=== PATIENT | male | born 1985 | race Hispanic/Latino ===

== ENCOUNTER 2018-02-06 08:03 | Day surgery (SDC) | payer BC ==
[~2018-02-06 08:03] MED LIST: CEFAZOLIN/SWI 2gm 2 GM/20 ML SYR IV SCH
[2018-02-06] MEDS ORDERED: Ringers Lactate 1,000 ML IV ONE ×2 (08:12→10:09)
[2018-02-06] MEDS ORDERED: FENTANYL CITR 100 MCG/2 ML ONE ×2 (08:58→09:25)
[2018-02-06] MEDS ORDERED: PROPOFOL 200 MG/20 ML VIAL IV ONE (08:58)
[2018-02-06] MEDS ORDERED: LIDOCAINE 1% MPF 5 ML VIAL ONE (08:58)
[2018-02-06] MEDS ORDERED: ROCURONIUM 50 MG/5 ML VIAL IV ONE ×2 (08:58→09:43)
[2018-02-06] MEDS ORDERED: MIDAZOLAM HCL 2 MG/2 ML INJ ONE (08:58)
[2018-02-06] MEDS: BUPIVACA 0.25%/EPI 0.0005% MDV 50 ML VIAL ONE ×2 (09:36→10:13)
[2018-02-06] MEDS ORDERED: GLYCOPYRROLATE 0.2 MG/ML SYR ONE ×2 (09:51)
[2018-02-06] MEDS ORDERED: KETOROLAC 30 MG/ML INJ ONE (09:52)
[2018-02-06] MEDS ORDERED: NEOSTIGMINE 1 MG/ML -5 ML SYRINGE ONE (09:53)
--- NOTE | 2018-02-06 10:13 | P.OP ---
Insurance Underwriter Sales: KONG NUNN Preoperative diagnosis: Ventral Periumbilical Hernia Postoperative diagnosis: Ventral Periumbilical Hernia Primary procedure: Laparoscopic Ventral Periumbilical Hernia Repair with Mesh Anesthesia: GETA + Local Estimated blood loss: <5cc Specimen: None Findings: ~3.5 cm infraumbilical hernia Complications: None Implants: Bard Ventralite ST with echo position 11.4 cm Transferred to: Recovery Room Condition: Good
[2018-02-06] MEDS: MEPERIDINE HCL 25 MG/0.5 ML ONE ×2 (10:29→10:33)
[2018-02-06] MEDS ORDERED: ONDANSETRON HCL 40 MG/20 ML VIAL ONE (10:30)
[2018-02-06] MEDS ORDERED: SUCCINYLCHOLINE 20 MG/ML (10 ML) IV ONE (10:39)
[2018-02-06] MEDS ORDERED: HYDROMORPHONE HCL 1 MG/ML INJ ONE ×2 (10:43→11:12)
[2018-02-06] MEDS: HYDROMORPHONE HCL 1 MG/ML INJ ONE ×3 (10:54→11:20)
[2018-02-06] MEDS: MIDAZOLAM HCL 2 MG/2 ML INJ ONE ×2 (11:07→11:20)
[2018-02-06] MEDS ORDERED: HYDROCODONE/APAP 5/325 MG TAB PO ONE (12:00)
[2018-02-06] MEDS ORDERED: HYDROCODONE/APAP 5/325 MG TAB ONE (12:11)
--- NOTE | 2018-02-06 13:53 | OP ---
Date of Procedure: 02/06/2018 Surgeon: Marcel Franz MD, Preoperative Diagnosis: Ventral periumbilical hernia. Postoperative Diagnosis: Ventral periumbilical hernia. Procedure Performed: Laparoscopic ventral periumbilical hernia repair with mesh. Anesthesia: General endotracheal plus local with 0.25% Marcaine with epinephrine. Estimated Blood Loss: Less than 5 cc. Specimen: None. Findings: A 3.5 cm infraumbilical hernia. Complications: None. Implants: Bard Ventralight ST with Echo positioning System, 11.4 cm mesh, round. Disposition: Transferred to recovery room in good condition. Procedure In Detail: After informed consent was obtained, the patient was brought to the operating r oom, prepped and draped in the usual sterile fashion. After adequate anesthesia was achieved, a left lateral quadrant area of skin was anesthetized with 0.25% Marcaine with epinephrine. An incision wa s made. A 5 mm 0 degree optical trocar was introduced in the abdomen without evidence of complicatio n. Insufflation was obtained to 15 mmHg. At this time, the area was inspected. There was no injury to vital structures upon entry into the abdomen. Immediately encountered and inspected was an infra umbilical approximately 3.5 cm omentum containing ventral periumbilical hernia. Additional trocar ch osen in the right lateral quadrant. This was similarly anesthetized and sharply incised, and a 5-mm trocar was introduced in the abdomen without evidence of complication. The left lateral quadrant por t was then up-sized to a 12 mm under direct visualization without evidence of complication. The Liga Sure device was used to take the omentum out of the hernia by taking down the lateral attachments and blunt dissection was predominantly used to remove the hernia contents, which were the omental fat to the normal anatomic position. The hernia was inspected and found to be approximately 3.5 cm in diam eter. At this time, a Bard Ventralight ST 11.4 cm round mesh with Echo positioning system was then b rought into the field, rolled appropriately and passed into the abdomen, deploying it using the insuf flation system from an infraumbilical incision was performed at this time through a small stab incisi on and the Washington-Banegas was used to grasp and pull the inflation deployment system through the umb ilicus. It was then deployed at this time. The mesh was appropriately positioned centrally over thi s defect and the absorbable fixation system was used to secure the mesh to the anterior abdominal wal l at this time. The balloon deployment system was then removed in its entirety and inspected on the back field and found to be in its entirety. I then continued to place a single crown type circumfere ntial mesh fixation using the absorbable fixation system to the anterior abdominal wall, and I placed a few interrupted tacks into the central portion of the hernia as well to secure the mesh to the ant erior abdominal wall in a good fashion. It was found to be in good approximation of tissues under de sufflation and normal pressure at this time. The left lateral trocar was then removed and the Washington -Bassam suture passer was used to close the 12 mm defect with a Washington-Ney suture passer with an 0 Vicryl interrupted fashion with good approximation of the tissue. The abdomen was completely de sufflated under direct visualization without evidence of complication and removed. All skin incision s were copiously irrigated and closed with a 4-0 Monocryl in a running fashion. Dermabond placed on top. The patient tolerated the procedure well without evidence of complication and transferred to [facility] PACU in good condition. All counts were correct at the end of the case. SHEA/RHONDA Voice ID: [id number] Report ID: [id number]
== END 2018-02-06 12:50 | disposition home or self-care (01) ==
LOC: OR 08:03
PROVIDERS: ATTEND Surgery
PROC: 0WUF4JZ Supplement Abdominal Wall with Synthetic Substitute, Percutaneous Endoscopic Approach (ICD-10-PCS; principal; 2018-02-06 09:15)
DX: K43.9 Ventral hernia without obstruction or gangrene (principal); K21.9 Gastro-esophageal reflux disease without esophagitis; E66.01 Morbid (severe) obesity due to excess calories; Z68.42 Body mass index [BMI] 45.0-49.9, adult
CPT/HCPCS: C1781; J0330; J0690; J1170; J2175; J2250; J2405; J2704; J2710; J3010

== ENCOUNTER 2018-08-15 02:59 | Observation (INO) | payer BC ==
[2018-08-15 03:43] LABS: Absolute Lymphocytes (CBC) 2.4 K/uL (0.7-4.9); Absolute Monocytes 0.6 K/uL (0.1-1.3); Absolute Neutrophil 4.1 K/uL (1.8-8.0); Basophils % 0.6 % (0-1.3); Eosinophils % 2.7 % (0-4.4); Hematocrit 40.7 % (39.6-49.0); Lymphocytes % 32.5 % (15.3-44.8); MPV 8.5 fL (7.6-11.3); Monocytes % 8.4 % (3.3-12.3); RBC Red Blood Cell Count 5.06 M/uL (4.33-5.43)
[2018-08-15 03:44] LABS: Protime INR 0.96
[2018-08-15] MEDS ORDERED: ONDANSETRON 4 MG/2 ML VIAL IV PRN (03:59)
[2018-08-15] MEDS ORDERED: MORPHINE 4 MG/ML SYR IV PRN (03:59)
[2018-08-15] MEDS ORDERED: ACETAMINOPHEN 500 MG TAB PO PRN (03:59)
[2018-08-15 04:07] LABS: ALT/SGPT 31 U/L (12-78); AST/SGOT 13 U/L (15-37); Albumin 3.5 g/dL (3.4-5.0); Alkaline Phosphatase 60 U/L (45-117); BUN Blood Urea Nitrogen 21 mg/dL (7-18); Bicarbonate 26 mmol/L (21-32); Bilirubin Direct < 0.1 mg/dL (0-0.2); Bilirubin Total 0.4 mg/dL (0.2-1.0); Glucose Level 130 mg/dL (74-106); Lipase 72 U/L (73-393); Magnesium 2.1 mg/dL (1.8-2.4); NT PRO-BNP 12 pg/mL (<125); Potassium 3.7 mmol/L (3.5-5.1); Protein, Total 7.4 g/dL (6.4-8.2); Sodium Level 139 mmol/L (136-145); Troponin (Emerg Dept Use Only) < 0.02 ng/mL (0.0-0.045)
[2018-08-15] MEDS ORDERED: ASPIRIN 81 MG CHEWABLE TABLET ONE (04:14)
[2018-08-15] MEDS ORDERED: ENOXAPARIN 100 MG/ML SYR SQ ONE (04:14)
[2018-08-15] MEDS ORDERED: FAMOTIDINE 20 MG/2 ML VIAL IV ONE (04:15)
[2018-08-15] MEDS ORDERED: NA CHLORIDE 0.9% 1,000 ML ONE (04:15)
--- NOTE | 2018-08-15 04:45 | ER ---
Nurse's Notes [facility] Name: Tee Garrett Age: 32 yrs Sex: Male : 1985 Arrival Date: 08/15/2018 Time: 03:02 Bed 6 Private MD: Bola Dorado C Diagnosis: Chest pain, unspecified;Palpitations;Obesity, unspecified;Abuse of non-psychoactive substances;Adverse effect of amphetamines Presentation: 08/15 03:05 Presenting complaint: Patient states: that he has been having midsternal chest pain on fc and off since 08/08/18 when he started Lisinopril/HCTZ. When he has the pain he also has palpitations and shortness of breath. Denies any nausea or vomiting. Transition of care: patient was not received from another setting of care. Onset of symptoms was August 08, 2018. Risk Assessment: Do you want to hurt yourself or someone else? Patient reports no desire to harm self or others. Initial Sepsis Screen: Does the patient meet any 2 criteria? HR > 90 bpm. Does the patient have a suspected source of infection? No. Patient's initial sepsis screen is negative. Care prior to arrival: None. 03:05 Method Of Arrival: Ambulatory 03:05 Acuity: YVROSE 3 fc Historical: - Allergies: 03:21 No Known Allergies; fc - Home Meds: 03:21 lisinopril-hydrochlorothiazide 10-12.5 mg oral tab 1 tab once daily [Active]; methadone fc 110 mg Oral once daily [Active]; - PMHx: 03:21 Hypertension; drug abuse; fc - PSHx: 03:21 Hernia repair; fc - Immunization history:: Last tetanus immunization: unknown. - Social history:: Smoking status: Patient/guardian denies using tobacco, Patient/guardian denies using alcohol, street drugs, the patient reports quitting approximately 1 years ago. - Ebola Screening: : Patient negative for fever greater than or equal to 101.5 degrees Fahrenheit, and additional compatible Ebola Virus Disease symptoms Patient denies exposure to infectious person Patient denies travel to an Ebola-affected area in the 21 days before illness onset. - Family history:: not pertinent. Screenin:19 Abuse screen: Denies threats or abuse. Nutritional screening: No deficits noted. fc Tuberculosis screening: No symptoms or risk factors identified. Fall Risk None identified. Assessment: 03:26 General: Appears in no apparent distress. Behavior is calm, cooperative. Pain: ed1 Complains of pain in chest Pain does not radiate. Pain currently is 6 out of 10 on a pain scale. Quality of pain is described as sharp, Pain began 1 day ago. Is continuous. Neuro: Level of Consciousness is awake, alert, obeys commands, Oriented to person, place, time, situation. Cardiovascular: Reports chest pain, Heart tones S1 S2 present. Respiratory: Airway is patent Respiratory effort is even, unlabored, Respiratory pattern is regular, symmetrical, Breath sounds are clear bilaterally. GI: Abdomen is obese, Bowel sounds present X 4 quads. Abd is soft and non tender X 4 quads. Patient currently denies diarrhea, nausea, vomiting. : No signs and/or symptoms were reported regarding the genitourinary system. EENT: No signs and/or symptoms were reported regarding the EENT system. Derm: Skin is intact, is healthy with good turgor, Skin is dry, Skin is normal, Skin temperature is warm. Musculoskeletal: Circulation, motion, and sensation intact. Range of motion: intact in all extremities. 04:09 Reassessment: Patient appears in no apparent distress at this time. No changes from ed1 previously documented assessment. Patient and/or family updated on plan of care and expected duration. Pain level reassessed. Patient is alert, oriented x 3, equal unlabored respirations, skin warm/dry/pink. 05:17 Reassessment: Patient appears in no apparent distress at this time. Patient and/or ed1 family updated on plan of care and expected duration. Pain level reassessed. Patient is alert, oriented x 3, equal unlabored respirations, skin warm/dry/pink. Patient states feeling better. Patient states symptoms have improved. 06:29 Reassessment: Patient appears in no apparent distress at this time. No changes from ed1 previously documented assessment. Patient and/or family updated on plan of care and expected duration. Pain level reassessed. Patient is alert, oriented x 3, equal unlabored respirations, skin warm/dry/pink. Patient states feeling better. Patient states symptoms have improved. Vital Signs: 03:05 BP 148 / 85; Pulse 111; Resp 20; Temp 98.3; Pulse Ox 99% on R/A; Weight 149.69 kg (R); fc Height 5 ft. 8 in. (172.72 cm) (R); Pain 6/10; 04:09 BP 149 / 82; Pulse 102; Resp 17; Temp 97.5(O); Pulse Ox 100% on R/A; Pain 6/10; ed1 05:17 BP 123 / 59; Pulse 92; Resp 11; Temp 98.1; Pulse Ox 100% on R/A; Pain 4/10; ed1 06:29 BP 126 / 51; Pulse 98; Resp 16; Temp 98.2(O); Pulse Ox 100% on R/A; Pain 4/10; ed1 07:21 BP 117 / 50; Pulse 107; Resp 16; Pulse Ox 98% on R/A; la1 03:05 Body Mass Index 50.18 (149.69 kg, 172.72 cm) ED Course: 03:02 Patient arrived in ED. es 03:03 oBla Dorado MD is Private Physician. es 03:05 Arm band placed on Patient placed in an exam room, on a stretcher. fc 03:05 Patient has correct armband on for positive identification. court monitor on. Pulse fc ox on. NIBP on. 03:05 No provider procedures requiring assistance completed. fc 03:17 Dejan Orozco MD is Attending Physician. samantha 03:18 Triage completed. fc 03:26 Clarisse Curran, CEZAR is Primary Nurse. ed1 03:26 Initial lab(s) drawn, by de, sent to lab. Missed attempt(s): 20 gauge in left forearm. ed1 Bleeding controlled, band aid applied, catheter tip intact. Patient maintains SpO2 saturation greater than 95% on room air. 03:37 X-ray completed. Portable x-ray completed in exam room. Patient tolerated procedure az well. 03:42 XRAY Chest (1 view) In Process Unspecified. EDMS 03:53 Missed attempt(s): 20 gauge in right antecubital area. Bleeding controlled, band aid oe applied, catheter tip intact. 04:01 Inserted saline lock: 22 gauge in left antecubital area, using aseptic technique. fc 04:42 Bola Dorado MD is Hospitalizing Provider. samantha 06:30 Resting quietly. Awaiting bed assignment. ed1 07:00 Primary Nurse role handed off by CurranClarisse chatman RN ed1 07:20 Santana Farrell, RN is Primary Nurse. la1 Administered Medications: 04:08 Drug: NS 0.9% 1000 ml Route: IV; Rate: 125 ml/hr; Site: left antecubital; ed1 04:08 Drug: Aspirin 162 mg Route: PO; ed1 04:47 Follow up: Response: No adverse reaction ed1 04:09 Drug: Pepcid 20 mg Route: IVP; Site: left antecubital; ed1 04:47 Follow up: Response: No adverse reaction ed1 04:09 Drug: Lovenox 100 mg Route: Sub-Q; Site: left lower abdomen; ed1 04:47 Follow up: Response: No adverse reaction ed1 Outcome: 04:44 Decision to Hospitalize by Provider. [facility] 10:11 Patient left the ED. ae3 Signatures: Dispatcher [employer] Dejan Gallardo MD MD cha Salyer, Edna es Chretien, Felicia, RN RN fc Riggs, Erika, RN RN ed1 Santana Farrell RN RN la1 Darnell Salomon Araceli az Elliot, Andie ae3
--- NOTE | 2018-08-15 04:45 | EDPHYS ---
Physician Documentation [facility] Name: Tee Garrett Age: 32 yrs Sex: Male : 1985 Arrival Date: 08/15/2018 Time: 03:02 Bed 6 Private MD: Bola Dorado C ED Physician Dejan Orozco HPI: 08/15 03:53 This 32 yrs old Male presents to ER via Ambulatory with complaints of Chest samantha Pain, Dizziness, Breathing Difficulty, Palpitations. 03:53 The patient or guardian reports chest pain that is located primarily in the substernal samantha area, anterior chest wall. The pain radiates to Associated signs and symptoms: The patient has no apparent associated signs or symptoms. The chest pain is described as a heaviness, a pressure. Duration: The patient or guardian reports a single episode, that is still ongoing. Modifying factors: The symptoms are alleviated by nothing. the symptoms are aggravated by nothing. Severity of pain: At its worst the pain was moderate in the emergency department the pain is unchanged. The patient has not experienced similar symptoms in the past. Historical: - Allergies: 03:21 No Known Allergies; fc - Home Meds: 03:21 lisinopril-hydrochlorothiazide 10-12.5 mg oral tab 1 tab once daily [Active]; methadone fc 110 mg Oral once daily [Active]; - PMHx: 03:21 Hypertension; drug abuse; fc - PSHx: 03:21 Hernia repair; fc - Immunization history:: Last tetanus immunization: unknown. - Social history:: Smoking status: Patient/guardian denies using tobacco, Patient/guardian denies using alcohol, street drugs, the patient reports quitting approximately 1 years ago. - Ebola Screening: : Patient negative for fever greater than or equal to 101.5 degrees Fahrenheit, and additional compatible Ebola Virus Disease symptoms Patient denies exposure to infectious person Patient denies travel to an Ebola-affected area in the 21 days before illness onset. - Family history:: not pertinent. ROS: 03:53 Constitutional: Negative for fever, chills, and weight loss, Eyes: Negative for injury, samantha pain, redness, and discharge, ENT: Negative for injury, pain, and discharge, Neck: Negative for injury, pain, and swelling, Abdomen/GI: Negative for abdominal pain, nausea, vomiting, diarrhea, and constipation, Back: Negative for injury and pain, : Negative for injury, bleeding, discharge, and swelling, MS/Extremity: Negative for injury and deformity, Skin: Negative for injury, rash, and discoloration, Neuro: Negative for headache, weakness, numbness, tingling, and seizure, Psych: Negative for depression, anxiety, suicide ideation, homicidal ideation, and hallucinations, Allergy/Immunology: Negative for hives, rash, and allergies, Endocrine: Negative for neck swelling, polydipsia, polyuria, polyphagia, and marked weight changes, Hematologic/Lymphatic: Negative for swollen nodes, abnormal bleeding, and unusual bruising. 03:53 Cardiovascular: Positive for chest pain. 03:53 Respiratory: Positive for cough, shortness of breath, at rest. Exam: 03:53 Constitutional: This is a well developed, well nourished patient who is awake, alert, samantha and in no acute distress. Head/Face: Normocephalic, atraumatic. Eyes: Pupils equal round and reactive to light, extra-ocular motions intact. Lids and lashes normal. Conjunctiva and sclera are non-icteric and not injected. Cornea within normal limits. Periorbital areas with no swelling, redness, or edema. ENT: Nares patent. No nasal discharge, no septal abnormalities noted. Tympanic membranes are normal and external auditory canals are clear. Oropharynx with no redness, swelling, or masses, exudates, or evidence of obstruction, uvula midline. Mucous membranes moist. Neck: Trachea midline, no thyromegaly or masses palpated, and no cervical lymphadenopathy. Supple, full range of motion without nuchal rigidity, or vertebral point tenderness. No Meningismus. Chest/axilla: Normal chest wall appearance and motion. Nontender with no deformity. No lesions are appreciated. Respiratory: Lungs have equal breath sounds bilaterally, clear to auscultation and percussion. No rales, rhonchi or wheezes noted. No increased work of breathing, no retractions or nasal flaring. Abdomen/GI: Soft, non-tender, with normal bowel sounds. No distension or tympany. No guarding or rebound. No evidence of tenderness throughout. Back: No spinal tenderness. No costovertebral tenderness. Full range of motion. Male : Normal genitalia with no discharge or lesions. Skin: Warm, dry with normal turgor. Normal color with no rashes, no lesions, and no evidence of cellulitis. MS/ Extremity: Pulses equal, no cyanosis. Neurovascular intact. Full, normal range of motion. Neuro: Awake and alert, GCS 15, oriented to person, place, time, and situation. Cranial nerves II-XII grossly intact. Motor strength 5/5 in all extremities. Sensory grossly intact. Cerebellar exam normal. Normal gait. Psych: Awake, alert, with orientation to person, place and time. Behavior, mood, and affect are within normal limits. 03:53 Cardiovascular: Rate: tachycardic, Rhythm: regular, Pulses: Pulses are 4+ in bilateral radial, brachial, femoral, popliteal, posterior tibial and and dorsalis pedis arteries.. Heart sounds: normal, Edema: is not appreciated, JVD: is not appreciated. 03:56 Musculoskeletal/extremity: DVT Exam: No signs of deep vein thrombosis. no pain, no samantha tenderness, negative Homans' sign noted on exam, no appreciated bluish discoloration, no erythema, no increased warmth, swelling, that is mild, of the right leg, of the left leg. Vital Signs: 03:05 BP 148 / 85; Pulse 111; Resp 20; Temp 98.3; Pulse Ox 99% on R/A; Weight 149.69 kg (R); fc Height 5 ft. 8 in. (172.72 cm) (R); Pain 6/10; 04:09 BP 149 / 82; Pulse 102; Resp 17; Temp 97.5(O); Pulse Ox 100% on R/A; Pain 6/10; ed1 05:17 BP 123 / 59; Pulse 92; Resp 11; Temp 98.1; Pulse Ox 100% on R/A; Pain 4/10; ed1 06:29 BP 126 / 51; Pulse 98; Resp 16; Temp 98.2(O); Pulse Ox 100% on R/A; Pain 4/10; ed1 07:21 BP 117 / 50; Pulse 107; Resp 16; Pulse Ox 98% on R/A; la1 03:05 Body Mass Index 50.18 (149.69 kg, 172.72 cm) MDM: 03:17 Patient medically screened. [facility] 03:57 Data reviewed: vital signs, nurses notes, lab test result(s), EKG, radiologic studies, samantha plain films. 08/15 03:18 Order name: Basic Metabolic Panel; Complete Time: 04:41 samantha 08/15 03:18 Order name: CBC with Diff; Complete Time: 03:51 samantha 08/15 03:18 Order name: LFT's; Complete Time: 04:41 samantha 08/15 03:18 Order name: Magnesium; Complete Time: 04:41 samantha 08/15 03:18 Order name: NT PRO-BNP; Complete Time: 04:41 samantha 08/15 03:18 Order name: PT-INR; Complete Time: 04:41 samantha 08/15 03:18 Order name: Troponin (emerg Dept Use Only); Complete Time: 04:41 samantha 08/15 03:18 Order name: Lipase; Complete Time: 04:41 samantha 08/15 03:18 Order name: UDS; Complete Time: 06:[address] [facility] 08/15 03:19 Order name: TSH; Complete Time: 04:[address] [facility] 08/15 04:04 Order name: Basic Metabolic Panel EDMO 08/15 04:04 Order name: Basic Metabolic Panel EDMO 08/15 04:04 Order name: CBC with Automated Diff EDMS 08/15 03:18 Order name: XRAY Chest (1 view) [facility] 08/15 03:18 Order name: EKG; Complete Time: 03:[address] [facility] 08/15 04:04 Order name: CONS Physician Consult EDMS 08/15 04:04 Order name: Echo with Doppler EDMS 08/15 04:04 Order name: CBC with Automated Diff EDMS 08/15 04:04 Order name: Troponin I EDMS 08/15 04:04 Order name: Troponin I EDMS 08/15 04:04 Order name: Troponin I EDMS 08/15 04:05 Order name: Chest Single View EDMS 08/15 04:05 Order name: Chest Single View EDMS 08/15 04:05 Order name: D-Dimer; Complete Time: 04:41 EDMO 08/15 05:53 Order name: Urine Dipstick--Ancillary (enter results) ag4 08/15 03:18 Order name: Cardiac monitoring; Complete Time: 03:28 samantha 08/15 03:18 Order name: EKG - Nurse/Tech; Complete Time: 03:[address] [facility] 08/15 03:18 Order name: IV Saline Lock; Complete Time: 05:52 samantha 08/15 03:18 Order name: Labs collected and sent; Complete Time: 03:[address] [facility] 08/15 03:18 Order name: O2 Per Protocol; Complete Time: 03:[address] [facility] 08/15 03:18 Order name: O2 Sat Monitoring; Complete Time: 03:[address] [facility] 08/15 03:18 Order name: Urine Dipstick-Ancillary (obtain specimen); Complete Time: 05:[address] [facility] 08/15 04:04 Order name: Regular EDMS 08/15 04:04 Order name: EKG Electrocardiogram EDMS 08/15 04:04 Order name: EKG Electrocardiogram EDMS 08/15 04:04 Order name: EKG Electrocardiogram EDMS 08/15 04:04 Order name: EKG Electrocardiogram EDMS Administered Medications: 04:08 Drug: NS 0.9% 1000 ml Route: IV; Rate: 125 ml/hr; Site: left antecubital; ed1 04:08 Drug: Aspirin 162 mg Route: PO; ed1 04:47 Follow up: Response: No adverse reaction ed1 04:09 Drug: Pepcid 20 mg Route: IVP; Site: left antecubital; ed1 04:47 Follow up: Response: No adverse reaction ed1 04:09 Drug: Lovenox 100 mg Route: Sub-Q; Site: left lower abdomen; ed1 04:47 Follow up: Response: No adverse reaction ed1 Disposition: 08/15/18 04:44 Hospitalization ordered by Bola Dorado for Observation. Preliminary diagnosis are Chest pain, unspecified, Palpitations, Obesity, unspecified, Abuse of non-psychoactive substances, Adverse effect of amphetamines. - Bed requested for Telemetry/MedSurg (observation). - Status is Observation. ae3 - Condition is Fair. - Problem is new. - Symptoms have improved. UTI on Admission? No Signatures: Dispatcher [employer] EDMS Dejan Orozco MD MD cha Chretien, Felicia, RN Nola Goodwin ms, Erika, RN RN ed1 Jessi Gasca ae3 Corrections: (The following items were deleted from the chart) 04:04 03:57 D-DIMER+COAG.LAB.BRZ ordered. EDMO EDMS 06:21 04:44 Hospitalization Ordered by Bola Dorado MD for Observation. Preliminary diagnosis is [facility] Chest pain, unspecified; Palpitations; Obesity, unspecified. Bed requested for Telemetry/MedSurg (observation). Status is Observation. Condition is Fair. Problem is new. Symptoms have improved. UTI on Admission? No. samantha 08:48 06:21 08/15/2018 04:44 [address] Ordered by A [address] QUINTEROS for Observation. ms Preliminary diagnosis is Chest pain, unspecified; Palpitations; Obesity, unspecified; Abuse of non-psychoactive substances; Adverse effect of amphetamines. Bed requested for Telemetry/MedSurg (observation). Status is Observation. Condition is Fair. Problem is new. Symptoms have improved. UTI on Admission? No. [facility] 10:11 08:48 08/15/2018 04:44 Hospitalization Ordered by A [address] QUINTEROS for Observation. ae3 Preliminary diagnosis is Chest pain, unspecified; Palpitations; Obesity, unspecified; Abuse of non-psychoactive substances; Adverse effect of amphetamines. Bed requested for Telemetry/MedSurg (observation). Status is Observation. Condition is Fair. Problem is new. Symptoms have improved. UTI on Admission? No. ms
[2018-08-15] MEDS ORDERED: METOPROLOL TAR 25 MG TAB PO SCH (06:00)
[2018-08-15 06:08] LABS: Barbiturates NEGATIVE (NEGATIVE); Benzodiazepines NEGATIVE (NEGATIVE); Cocaine NEGATIVE (NEGATIVE); METHAMPHETAM NEGATIVE (NEGATIVE); Methadone POSITIVE (NEGATIVE); Opiates NEGATIVE (NEGATIVE); Phencyclidine NEGATIVE (NEGATIVE); THC Cannibis NEGATIVE (NEGATIVE)
--- NOTE | 2018-08-15 06:46 | EKG ---
Test Date: 2018-08-15 Test Time: 03:16:35 [employer]: ADRIANA MEASUREMENT RESULTS: Intervals: Rate: 106 CA: 148 QRSD: 120 QT: 366 QTc: 486 [place]: P: 55 CA: 148 QRS: 10 T: -9 INTERPRETIVE STATEMENTS: Sinus tachycardia with occasional premature ventricular complexes Left ventricular hypertrophy with QRS widening Nonspecific ST abnormality Abnormal ECG No previous ECG available for comparison Electronically Signed On 08-15-18 06:45:56 CDT by Saurabh Matta
[2018-08-15 07:17] LABS: Urine Blood NEGATIVE (NEG); Urine Glucose NEGATIVE (NEG); Urine Protein TRACE (NEG); Urine Specific Gravity 1.025 (1.005-1.030)
[2018-08-15] MEDS ORDERED: LISINOPRIL 10 MG TAB PO SCH (09:00)
[2018-08-15] MEDS ORDERED: ASPIRIN EC 81 MG TAB PO SCH (09:00)
[2018-08-15] MEDS ORDERED: FAMOTIDINE 20 MG/2 ML VIAL IV SCH (09:00)
[2018-08-15] MEDS ORDERED: ENOXAPARIN 100 MG/ML SYR SQ SCH ×2 (09:00→17:00)
--- NOTE | 2018-08-15 10:09 | RAD REPORT ---
EXAM DESCRIPTION: Desmond Single View08/15/2018 3:42 am CLINICAL HISTORY: Chest pain COMPARISON: none FINDINGS: The left base is hazy. The remainder of the lungs appear clear. Heart is probably normal size. IMPRESSION: Left base is hazy most likely secondary to overlying soft tissue. If patient has clinic al symptoms to suggest an infiltrate PA and lateral chest series recommended
--- NOTE | 2018-08-15 10:55 | RAD REPORT ---
EXAM DESCRIPTION: Desmond Lao (2 Views)08/15/2018 10:48 am CLINICAL HISTORY: Chest pain COMPARISON: August 15, 2018 FINDINGS: The left lung base is clear. The lungs appear clear of acute infiltrate. The heart is nor mal size IMPRESSION: No acute abnormalities displayed
--- NOTE | 2018-08-15 14:20 | CON ---
Chief Complaint: Chest pain. History Of Present Illness: Mr. Garrett was started on lisinopril with hydrochlorothiazide for hyperten kathleen about 5 days ago. He says every day he takes it 2 hours later he gets the pain. It was making him cough, making him feel like he was choking, and giving him an uncomfortable feeling in the upper part of his chest. His last dose of it was yesterday and now he feels back to normal. Since he has been here in the hospital, his EKG does not show infarction, injury, or ischemia. There were a few P VCs. Now his telemetry shows sinus rhythm. Blood pressure 123/70. All of his troponins are normal. TSH is normal. Blood sugar is slightly elevated 130. BUN, creatinine, electrolytes normal, and a complete blood count normal. The patient has no prior history of myocardial infarction or stroke or vascular disease. 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 He is on a methadone maintenance program. He has never had an y surgical interventions. He uses tobacco and alcohol in moderation. Physical Examination: General: He appears to be his stated age, very obese. Alert, oriented, pleasant, not in distress. Neck: Carotids no bruit. Lungs: Clear. Cardiac: Normal. Abdomen: Soft. Extremities: Normal. No cyanosis, clubbing, or edema. Impression: The patient seems to be allergic to one of the 2 components in the pill he was started o n. It is most likely the lisinopril. The safest thing is to consider him intolerant to both and not try to rechallenge him with it. Right now his blood pressure is good. I do not think he needs any direct intervention. This is definitely not an acute coronary syndrome. I think if we observe him long enough that were comfortably stable, we could have him do an outpatient stress test. SUNNY Voice ID: [id number] Report ID: [id number]
[2018-08-15] MEDS: METOPROLOL TAR 25 MG TAB PO SCH (17:13)
--- NOTE | 2018-08-15 18:48 | SS ---
Chief Complaint: Chest pain, palpitation, shortness of breath. History Of Present Illness: This is a 32-year-old pleasant male patient who saw me 1 week ago for in [facility] patient office appointment. He is morbidly obese. His blood pressure was elevated. He wa s started on lisinopril/HCTZ. The patient along with elevated blood pressure also had leg edema. Th e patient says that since he started taking this medication, he has been having chest pain in the molly ter of upper part of his chest, which is in the upper sternal area, and the pain is intermittent off and on throughout the day. The patient says that when he gets up and walks around, his pain gets bet ter and goes away with activity. Yesterday, he had 2 episodes of palpitation and shortness of breath lasting maybe for about a minute or so. So after the second episode, he decided to come to the [facility] room. After he was evaluated in the ER, he was admitted to the hospital. When I saw him this morning, he was still in the emergency room and denies any fever, chills, nausea, vomiting. Allergies: NO KNOWN ALLERGIES. Medications: Lisinopril/HCTZ 10/12.5 one tab p.o. daily, and methadone 110 mg p.o. daily, and he is on this particular methadone dose for last 10 years. Review of Systems: Cardiovascular: As mentioned above. All other systems reviewed and negative. Past Medical History: Significant for hypertension, impaired fasting glucose, snoring, leg edema. Past Surgical History: Tonsillectomy and hernia surgery. Family History: Significant for hypertension, diabetes, osteoarthritis, cirrhosis of liver. Social History: Positive for smoking. Negative for alcohol use. Prior history of drug use, which w as over 10 years ago. He is on methadone program for last 10 years and has not used any drugs since he is on methadone program. Physical Examination: Vital Signs: When he first came into emergency room, vital signs included blood pressure 148/85, pul se 111, respiratory rate 20, temperature 98.3, oxygen saturation 99%. Weight 149.69 kg, height 5 fee t 8 inches. General: Awake, alert, oriented, not in distress. HEENT: Head atraumatic, normocephalic. Conjunctivae nonerythematous. Sclerae white. Mouth, no thr ush or edema noted. Ears/Nose, no mass, lesion, discharge noted. Neck: Supple. No JVD, lymph nodes, bruit, thyromegaly noted. Lungs: Bilateral good equal air entry. Clear to auscultation. No rhonchi. No rales. Heart: Normal heart sounds, no murmur or gallop. Abdomen: Soft, bowel sounds normal. No guarding, rigidity, tenderness, mass, hepatosplenomegaly, dis tention, or bruit noted. Extremities: Trace leg edema, which is overall better than compared to a week ago when he was at the office. Skin: No rash, ulcer, cellulitis. Lymphatics: No lymph node enlargement in neck, supraclavicular, infraclavicular region. Neuro: No focal neurological deficit. Chest: Unremarkable. External Genitalia: Deferred. Rectal: Deferred. Laboratory Data: White count 7.4, hemoglobin 14.2 platelets 271. Sodium 139, potassium 3.7, chlorid e 105, bicarb 26, BUN 21, creatinine 0.99, glucose 130. Liver function tests unremarkable. Troponin less than 0.02 x2. TSH 3.23. Urinalysis; trace protein, otherwise negative. Urine drug screen pos itive for methadone. EKG; sinus tachycardia with occasional premature ventricular complex, left vent ricular hypertrophy with QRS widening, nonspecific ST abnormality. Chest x-ray, no acute cardiopulmo nary changes. There was some haziness in the left lower lung field, which could be very well soft ti ssue shadow from his chest wall soft tissue, and chest x-ray, PA and lateral, will be done for furthe r evaluation today. Impression: 1.Chest pain. 2.Palpitation. 3.Dyspnea. 4.Hypertension. 5.Impaired fasting glucose. 6.Leg edema. Plan: We will go ahead and admit the patient to hospital for further evaluation and management of th is problem. Cardiology consultation will be requested. The patient's 2 sets of cardiac enzymes are negative. His chest pain is atypical in nature. When I saw him in emergency room, his heart rate wa s anywhere from 110-124 range, sinus tachycardia, and he will go ahead and stop using lisinopril/HCTZ , considering he is having these new symptoms, which are something new that he describes, started aft er he started taking lisinopril. We will go ahead and start him on low-dose metoprolol. Cardiology consultation is requested. Possible discharge to go home later on today if passenger interline clerk approves it, and the patient will continue to follow up on outpatient basis, and upon discharge we will still sen d him home with low-dose metoprolol instead of lisinopril. I did talk to patient that he should go a head and work with his Methadone Clinic to try to wean off over period of time considering he is on t he same dose for last 10 years or so as he describes, and his goal should be to ultimately completely stop using methadone and not to use any drugs in the future. Final Diagnoses: 1.Chest pain. 2.Palpitation. 3.Shortness of breath. 4.Hypertension. 5.Leg edema. 6.Sinus tachycardia. 7.Impaired fasting glucose. QUIQUE/MODL Voice ID: [id number] Report ID: [id number]
[2018-08-16] MEDS: METOPROLOL TAR 25 MG TAB PO SCH (06:09)
--- NOTE | 2018-08-17 01:56 | DS ---
Date of Discharge: 08/16/2018 The patient was sitting in chair, denied any complaints. Has not had any recurrence of chest pain, s hortness of breath, or palpitations since his admission to the hospital. On financial services counselor, he stover s not had any cardiac arrhythmia. During this hospital stay, has remained in sinus rhythm. Physical Examination: Vital Signs: This morning, pulse 76, blood pressure 132/75, temperature 97.7. HEENT: Unremarkable. Lungs: Clear to auscultation. Heart: Sounds normal. Abdomen: Soft, bowel sounds normal. No guarding, rigidity, tenderness, distention. Extremities: No leg edema. Blood Work: White count 7.4, hemoglobin 14.2 platelets 275. Sodium 139, potassium 3.7, chloride 105 , bicarb 26, BUN 21, creatinine 0.99, glucose 130. Liver function tests unremarkable. Troponin less than 0.02. TSH 3.23, magnesium 2.1. Chest x-ray: No acute cardiopulmonary changes. Discharge Medications And Instructions: 1.Continue your methadone as you were taking before and ask Meth[facility]one Clinic to help you wean off me thadone over period of time if possible. 2.Stop lisinopril/HCTZ and start metoprolol succinate 25 mg 1 tablet by mouth daily in morning. 3.Follow up at my office per scheduled appointment. 4.Follow up with supervisor mill, Dr. Matta, to get stress test at his office. Hospital Course: A 32-year-old very pleasant male patient who came into emergency room with intermit tent history of 1 week duration of chest pain. This chest pain problem he describes started after he started taking lisinopril which was prescribed a week ago. He also started to have palpitation and shortness of breath, so he came into ER. Please see dictated H and P for more information. After bereket lopez was evaluated in the emergency room, he was admitted to the hospital. AR was ruled out by gett ing serial cardiac enzymes and Cardiology consultation was requested from Dr. Matta who evaluated elroy rooney. Both Dr. Matta and myself, we agreed to discontinue lisinopril/HCTZ as we believed that the ashok ent's symptoms were due to side effect from this medication and patient was made aware of that. Meto prolol 12.5 mg twice a day was started yesterday, which he has tolerated very well, and upon discharg e, will continue metoprolol at 25 mg once a day dose. The patient will follow up at my office per hi s appointment. He was monitored on telemetry overnight. No cardiac arrhythmia noted and he is asymp tomatic, medically stable for discharge. Final Diagnoses: 1.Chest pain. 2.Palpitation. 3.Dyspnea. 4.Hypertension. 5.Impaired fasting glucose. QUIQUE/MODL Voice ID: [id number] Report ID: [id number]
== END 2018-08-16 13:10 | disposition home or self-care (01) ==
LOC: ER 02:59 → ERHOLD 07:51 → 2ND 09:46
PROVIDERS: ADMIT Internal Medicine; ATTEND Internal Medicine
DX: R07.9 Chest pain, unspecified (principal); R00.2 Palpitations; R06.00 Dyspnea, unspecified; I10 Essential (primary) hypertension; R73.01 Impaired fasting glucose
CPT/HCPCS: 36415; 71045; 71046; 80048; 80076; 80307; 81003; 83690; 83735; 83880; 84443; 84484; 85025; 85379; 85610; 93005; 96372; 96374; 99285; G0378; J1650; J7030

== ENCOUNTER 2023-11-30 01:19 | Emergency (ER) | payer BC ==
[2023-11-30 02:33] LABS: Absolute Eosinophils 0.2 K/uL (0-0.5); Absolute Lymphocytes (CBC) 1.5 K/uL (0.7-4.9); Absolute Monocytes 0.6 K/uL (0.1-1.3); Absolute Neutrophil 4.6 K/uL (1.8-8.0); Basophils % 0.6 % (0-1.3); Eosinophils % 3.4 % (0-4.4); Hematocrit 35.2 % (39.6-49.0); Hemoglobin 11.5 g/dL (13.6-17.9); Lymphocytes % 21.9 % (15.3-44.8); MCH 27.1 pg (27.0-35.0); MCHC 32.8 g/dL (32.0-36.0); MCV 82.7 fL (80-100); MPV 7.1 fL (7.6-11.3); Monocytes % 8.5 % (3.3-12.3); Neutrophils % 65.6 % (41.7-73.7); Platelets 289 thou/uL (152-406); RBC Red Blood Cell Count 4.26 M/uL (4.33-5.43); Red Cell Distribution Width 14.4 % (12.1-15.2)
[2023-11-30 02:51] LABS: Anion Gap 9.6 mEq/L (5.0-15.0); Potassium 3.6 mEq/L (3.5-5.1); Troponin High Sensitivity 5.1 pg/mL (<58.9)
[2023-11-30] MEDS ORDERED: KETOROLAC 30 MG/ML INJ ONE (02:56)
--- NOTE | 2023-11-30 03:01 | EDPHYS ---
Physician Documentation [facility] Name: Tee Ochoa Age: 38 yrs Sex: Male : 1985 Arrival Date: 11/30/2023 Time: 01:19 Bed 18 Private MD: ED Physician Gabriel Wong HPI: 11/29 01:53 This 38 yrs old Male presents to ER via Ambulatory with complaints of Chest ec2 Pain, Headache. 01:53 Patient with history of anxiety arrives today for chest pain, headache. Patient reports ec2 he took some Atarax and minimal alleviation in symptoms. Patient states that he otherwise has a history of high blood pressure as well. Denies any exertional component.. Historical: - Allergies: 01:30 No Known Allergies; vc1 - Home Meds: 01:30 losartan 25 mg oral tablet once [Active]; metoprolol tartrate 50 mg Oral tablet daily vc1 [Active]; hydroxyzine HCl 25 mg Oral tablet [Active]; methadone 110 mg Oral once daily [Active]; - PMHx: 01:30 Hypertension; drug abuse; Anxiety; vc1 - PSHx: 01:30 None; vc1 - Immunization history:: Client reports receiving the 2nd dose of the Covid vaccine. - Infectious Disease History:: Denies. - Social history:: Smoking status: Patient reports the use of cigarette tobacco products, denies chronic smoking, but will smoke occasionally. ROS: 01:53 Constitutional: as per hpi ec2 Exam: 01:53 Constitutional: GEN: NAD Head: atraumatic Eyes: EOMI Ears: External ears are ec2 normal. CV: regular rate LUNGS: no respiratory distress ABD: non-distended SKIN: no evidence of rashes MSK: no evidence of trauma Vital Signs: 01:28 Weight 163.29 kg; Height 5 ft. 8 in. ; Pain 5/10; vc1 01:42 BP 135 / 64; Pulse 100; Resp 15; Temp 98.6; Pulse Ox 98% ; vc1 03:00 BP 118 / 50; Pulse 86; Pulse Ox 98% on R/A; Pain 3/10; tm6 03:15 Pain 0/10; tm6 03:17 BP 112 / 50; Pulse 96; Resp 18; Temp 98.7; Pulse Ox 95% on R/A; Pain 0/10; tm6 01:28 Body Mass Index 54.74 (163.29 kg, 172.72 cm) vc1 01:28 Pain Scale: Adult vc1 03:00 Pain Scale: Adult tm6 03:15 Pain Scale: Adult tm6 03:17 Pain Scale: Adult tm6 MDM: 01:25 Patient medically screened. ec2 01:41 ED course: EKG independently reviewed and interpreted by me, shows normal sinus rhythm, ec2 rate 99, no acute ST segment elevations, intervals are nonconcerning.. 01:53 Data reviewed: vital signs. ED course: Patient arrives today for evaluation of chest ec2 pain and headache. Examination remarkable for well-appearing nontoxic and appears otherwise in no acute distress with a reassuring examination. Will obtain lab work, EKG, chest x-ray. Differential includes ACS, costochondritis, anxiety . 03:00 ED course: Metabolic profile reassuring, CBC with slight anemia noted, troponin within ec2 normal ranges. Ultimately suspect migrainous symptoms versus anxiety causing patient's presentation today. Doubt ACS. Will discharge home. Return precautions given. 11/29 01:53 Order name: Basic Metabolic Panel; Complete Time: 03:00 ec2 11/29 01:53 Order name: CBC with Diff; Complete Time: 03:00 ec2 11/29 01:53 Order name: Troponin HS; Complete Time: 03:00 ec2 11/29 01:53 Order name: XRAY Chest (1 view) ec2 11/29 01:53 Order name: EKG; Complete Time: 01:53 ec2 11/29 01:53 Order name: Cardiac monitoring; Complete Time: 02:36 ec2 11/29 01:53 Order name: EKG - Nurse/Tech; Complete Time: 01:53 ec2 11/29 01:53 Order name: IV Saline Lock; Complete Time: 02:36 ec2 11/29 01:53 Order name: Labs collected and sent; Complete Time: 02:36 ec2 11/29 01:53 Order name: O2 Per Protocol; Complete Time: 01:53 ec2 11/29 01:53 Order name: O2 Sat Monitoring; Complete Time: 01:53 ec2 Administered Medications: 03:00 Drug: Ketorolac IVP 15 mg IVP once Route: IVP; Site: left forearm; tm6 03:15 Follow up: Pain 0/10 Adult; Response: No adverse reaction; Marked relief of symptoms; tm6 Pain is decreased Disposition Summary: 11/30/23 03:01 Discharge Ordered Notes: Location: Home ec2 Condition: Stable ec2 Diagnosis - Headache ec2 - Generalized anxiety disorder ec2 Followup: ec2 - With: Private Physician - When: - Reason: Re-evaluation by your physician Discharge Instructions: - Discharge Summary Sheet ec2 - General Headache Without Cause ec2 - Panic Attack, [id number] ec2 Forms: - Medication Reconciliation Form ec2 - Antibiotic Education ec2 - Prescription Opioid Use ec2 - Patient Portal Instructions ec2 - Leadership Thank You Letter ec2 Signatures: Dispatcher [employer] Rosario Jaime RN RN vc1 Gabriel Wong MD MD ec2 Marc Iglesias RN RN tm6
--- NOTE | 2023-11-30 03:01 | ER ---
Nurse's Notes [facility] Name: Tee Ochoa Age: 38 yrs Sex: Male : 1985 Arrival Date: 11/30/2023 Time: : Bed 18 Private MD: Diagnosis: Headache;Generalized anxiety disorder Presentation: 11/29 01:28 Chief complaint: Patient states: Have chest pains and then started having panic attacks vc1 I have started taking Hydroxyzine but the last couple of days it feels like my chest is compressing then the back of my neck started hurting. I took the medicine today and I still feel the pain and my blood pressure and heart rate was high. Coronavirus screen: Client denies travel out of the [place] in the last 14 days. At this time, the client does not indicate any symptoms associated with coronavirus-19. Ebola Screen: Patient negative for fever greater than or equal to 101.5 degrees Fahrenheit, and additional compatible Ebola Virus Disease symptoms Patient denies exposure to infectious person. Patient denies travel to an Ebola-affected area in the 21 days before illness onset. No symptoms or risks identified at this time. Initial Sepsis Screen: Does the patient meet any 2 criteria? No. Patient's initial sepsis screen is negative. Does the patient have a suspected source of infection? No. Patient's initial sepsis screen is negative. Risk Assessment: Do you want to hurt yourself or someone else? Patient reports no desire to harm self or others. Onset of symptoms was November 30, 2023. :28 Method Of Arrival: Ambulatory vc1 01:28 Acuity: YVROSE 3 vc1 Historical: - Allergies: 01:30 No Known Allergies; vc1 - Home Meds: 01:30 losartan 25 mg oral tablet once [Active]; metoprolol tartrate 50 mg Oral tablet daily vc1 [Active]; hydroxyzine HCl 25 mg Oral tablet [Active]; methadone 110 mg Oral once daily [Active]; - PMHx: 01:30 Hypertension; drug abuse; Anxiety; vc1 - PSHx: 01:30 None; vc1 - Immunization history:: Client reports receiving the 2nd dose of the Covid vaccine. - Infectious Disease History:: Denies. - Social history:: Smoking status: Patient reports the use of cigarette tobacco products, denies chronic smoking, but will smoke occasionally. Screenin:32 Abuse screen: Denies threats or abuse. Nutritional screening: No deficits noted. vc1 Tuberculosis screening: No symptoms or risk factors identified. 01:54 [facility] ED Fall Risk Assessment (Adult) History of falling in the last 3 months, tm6 including since admission No falls in past 3 months (0 pts) Confusion or Disorientation No (0 pts) Intoxicated or Sedated No (0 pts) Impaired Gait No (0 pts) Mobility Assist Device Used No (0 pt) Altered Elimination No (0 pt) Score/Fall Risk Level 0 - 2 = Low Risk Oriented to surroundings, Maintained a safe environment, Educated pt \T\ family on fall prevention, incl call for assistance when getting out of bed. Assessment: 01:54 General: Appears in no apparent distress. Behavior is calm, cooperative. Pain: tm6 Complains of pain in face and mid-sternal area Pain does not radiate. Quality of pain is described as burning, pressure, Pain began 3 hours ago. Neuro: Level of Consciousness is awake, alert, obeys commands, Oriented to person, place, time, situation. Neuro: Reports headache frontal area, occipital area, since 3 hours ago. Cardiovascular: Reports chest pain, since 3 hours ago Patient's skin is warm and dry. Rhythm is sinus rhythm Chest pain quality is pressure, is located in substernal area began 3 hours prior to arrival. Respiratory: Airway is patent Respiratory effort is even, unlabored, Respiratory pattern is regular, symmetrical. GI: No signs and/or symptoms were reported involving the gastrointestinal system. Abdomen is obese. : No signs and/or symptoms were reported regarding the genitourinary system. EENT: No signs and/or symptoms were reported regarding the EENT system. Derm: No signs and/or symptoms reported regarding the dermatologic system. Musculoskeletal: No signs and/or symptoms reported regarding the musculoskeletal system. 03:01 Reassessment: Patient appears in no apparent distress at this time. Patient and/or tm6 family updated on plan of care and expected duration. Pain level reassessed. Patient is alert, oriented x 3, equal unlabored respirations, skin warm/dry/pink. 03:18 Reassessment: Patient appears in no apparent distress at this time. Patient and/or tm6 family updated on plan of care and expected duration. Pain level reassessed. Patient is alert, oriented x 3, equal unlabored respirations, skin warm/dry/pink. Patient states feeling better. Patient states symptoms have improved. Vital Signs: 01:28 Weight 163.29 kg; Height 5 ft. 8 in. ; Pain 5/10; vc1 01:42 BP 135 / 64; Pulse 100; Resp 15; Temp 98.6; Pulse Ox 98% ; vc1 03:00 BP 118 / 50; Pulse 86; Pulse Ox 98% on R/A; Pain 3/10; tm6 03:15 Pain 0/10; tm6 03:17 BP 112 / 50; Pulse 96; Resp 18; Temp 98.7; Pulse Ox 95% on R/A; Pain 0/10; tm6 01:28 Body Mass Index 54.74 (163.29 kg, 172.72 cm) vc1 01:28 Pain Scale: Adult vc1 03:00 Pain Scale: Adult tm6 03:15 Pain Scale: Adult tm6 03:17 Pain Scale: Adult tm6 ED Course: 01:23 Patient arrived in ED. jj6 01:25 Gabriel Wong MD is Attending Physician. ec2 01:30 Triage completed. vc1 01:32 Arm band placed on right wrist. vc1 01:51 Marc Iglesias, CEZAR is Primary Nurse. tm6 01:54 Patient has correct armband on for positive identification. Bed in low position. Call tm6 light in reach. Side rails up X 1. Provided Education on: use of call rangel. Client placed on continuous cardiac and pulse oximetry monitoring. NIBP monitoring applied. installation service representative on. Pulse ox on. NIBP on. Door closed. Noise minimized. Pillow given. 01:54 EKG done, by ED staff, reviewed by Gabriel Wong MD. Patient maintains SpO2 saturation tm6 greater than 95% on room air. 02:25 Missed attempt(s): 20 gauge Bleeding controlled, band aid applied, catheter tip intact. oe 02:28 Inserted saline lock: 22 gauge in left forearm, using aseptic technique. Blood oe collected. Flushed with 10 mL NS. 02:33 XRAY Chest (1 view) In Process Unspecified. EDMS 03:18 No provider procedures requiring assistance completed. IV discontinued, intact, tm6 bleeding controlled, No redness/swelling at site. Pressure dressing applied. Administered Medications: 03:00 Drug: Ketorolac IVP 15 mg IVP once Route: IVP; Site: left forearm; tm6 03:15 Follow up: Pain 0/10 Adult; Response: No adverse reaction; Marked relief of symptoms; tm6 Pain is decreased Medication: 01:54 VIS not applicable for this client. tm6 Outcome: 03:01 Discharge ordered by . ec2 03:18 Discharged to home ambulatory, tm6 03:18 Condition: stable 03:18 Discharge instructions given to patient, Instructed on discharge instructions, follow up and referral plans. Demonstrated understanding of instructions, follow-up care, 03:19 Patient left the ED. tm6 Signatures: Dispatcher [employer] EDDarnell Chew Jennifer jj6 Rosario Blakely RN RN vc1 Gabriel Wong MD MD ec2 Marc Iglesias RN RN tm6
[2023-11-30 04:18] VITALS: BP 112/50; TEMP 98.7; O2SAT 95
--- NOTE | 2023-12-02 15:18 | RAD REPORT ---
EXAM DESCRIPTION: RAD - Chest Single View - 12/02/2023 2:01 pm CLINICAL HISTORY: 38 years, Male, Chest pain. COMPARISON: XR Chest 08/15/2018. FINDINGS: 1 view of the chest (AP portable projection) was obtained. No prior films are available at this time for comparison. There is slight decreased lung volume. Mediastinum: The cardiomediastinal silhouette appears normal in size and shape. Lungs: No areas of consolidations or masses are identified. Heart: The heart is normal in size. Thoracic aorta: The thoracic aorta demonstrate to be normal. Pulmonary vasculature: The pulmonary vasculature is normal in distribution. Pleura: The costophrenic angles demonstrate to be sharp. Osseous structures: The bony structures demonstrate to be within normal limits. Other: None. IMPRESSION: No acute cardiopulmonary disease is seen Electronically signed by: Sascha Horvath MD 11/30/2023 03:56 AM CDT RP Due to temporary technical issues with the PACS/Fluency reporting system, reports are being signed by the in house radiologists without review as a courtesy to insure prompt reporting. The interpreting radiologist is fully responsible for the content of the report.
--- NOTE | 2023-12-02 17:53 | EKG ---
Test Date: 2023-11-30 Test Time: 01:37:59 Fitting Room Checker: ROQUE MEASUREMENT RESULTS: Intervals: Rate: 99 NM: 196 QRSD: 128 QT: 378 QTc: 485 [place]: P: 49 NM: 196 QRS: 36 T: 22 INTERPRETIVE STATEMENTS: Normal sinus rhythm Nonspecific intraventricular block Abnormal ECG No previous ECG available for comparison Electronically Signed On 12-02-23 17:48:09 CDT by Maurice Doran
== END 2023-11-30 03:19 | disposition home or self-care (01) ==
LOC: ER 01:19
DX: R51.9 Headache, unspecified (principal); F41.1 Generalized anxiety disorder; I10 Essential (primary) hypertension; F17.210 Nicotine dependence, cigarettes, uncomplicated
CPT/HCPCS: 36415; 71045; 80048; 84484; 85025; 93005; 96374; 99285

== ENCOUNTER 2024-06-26 11:09 | Emergency (ER) | payer BC ==
--- OUTSIDE RECORDS SUMMARY | 2024-06-26 11:12 | XMS REPORT | Continuity of Care Document ---
Author Name Unknown Address [address] [facility] [address] [place] [address] [facility] Address [address] [facility] [address] [place] [address] Care Team Providers Care Drapery Cutter Machine Name Role Phone Pcp, Patient Does Not Have A Primary Care Physic marla Campaigns, Generic Provider Attending Clinician Unavailable Torres Ryan Attending Clinician [phone] Unknown, Attending Attending Clinician Unavailab TORRES Nelson Attending Clinician Unavailable Payers Payer Name Policy Type Policy Number Effective Date Expirati on Date Source Allergies, Adverse Reactions, Alerts Allergy Name Allergy Type Status Severity Reaction(s) Onset Date Inactive Date Treating Clinician Comments Source NO KNOWN ALLERGIE S Drug Class Active [facility] Social History Social Habit Start Date Stop Date Quantity Comments Source Sexual orientation U [facility] Sex assigned at 1985 00:00:00 1985 00:00:00 [facility] Smoking Status Start Date Stop Date Source Tobacco smoking consumption unknown [facility] Medications Ordered Medication Name Filled Medication Name Start Date Stop Date Current Medication? Ordering Clinician Indication Dosage Frequency Signature (SIG) Comments Components Source albuterol 90 mcg/actuati on inhaler 2023-04 00:00: 00 03-21 05:59 :00 No [id number] 2{puff} Inhale 2 Puffs every 6 (six) hours as needed for Wheezing for up to 10 days. [facility] oseltamivir (TAMIFLU) 75 mg capsule 2023-04 00:00: 00 03-16 05:59 :00 No [id number] 75mg Take 1 capsule by mouth in the morning and 1 capsule in the evening. Do all this for 5 days. [facility] codeine-gua ifenesin 10-100 mg/5 mL oral solution 2023-04 00:00: 00 03-16 05:59 :00 No 5mL Take 5 mL by mouth every 6 (six) hours as needed for Cough for up to 5 days. Indication s: cough [facility] Vital Signs Vital Name Observation Time Observation Value Comments S ource Systolic blood pressure 2024-03-11 00:36:00 135 mm[Hg] [facility] Diastolic blood pressure 2024-03-11 00:36:00 81 mm[Hg] [facility] Heart rate 2024-03-11 00:36:00 99 /min [facility] Body temperature 2024-03-11 00:36:00 37.44 Radha [facility] Respiratory rate 2024-03-11 00:36:00 18 /min [facility] Body weight 2024-03-11 00:36:00 168.823 kg [facility] Oxygen saturation in Arterial blood by Pulse oximetry 2024-03-11 00:36:00 98 /min [facility] Procedures Procedure Date / Time Performed Performing Clinicia n Source POCT MOLECULAR FLU 2024-03-11 00:35:00 Torres Smith [facility] Encounters Start Date/Time End Date/Time Encounter Type Admission Type Attending [facility] Care Facility Care Department Encounter ID Source 2024-03-17 00:00:00 2024-03-17 12:05:01 Letter (Out) Campaigns, Generic Provider Campaigns, Generic Provider [facility] [id number] [facility] 2024-03-10 17:40:00 2024-03-10 18:00:00 Urgent Care Torres Smith Unknown, [facility] [id number] [facility] 2024-03-10 17:40:00 2024-03-10 17:40:00 Outpatient TORRES DODD [facility] [id number] [facility] Results Test Description Test Time Test Comments Results Result Co mments Source [facility]
[2024-06-26 12:06] LABS: Absolute Eosinophils 0.3 K/uL (0-0.5); Absolute Lymphocytes (CBC) 1.9 K/uL (0.7-4.9); Absolute Monocytes 0.6 K/uL (0.1-1.3); Absolute Neutrophil 3.8 K/uL (1.8-8.0); Basophils % 0.7 % (0-1.3); Eosinophils % 4.1 % (0-4.4); Hematocrit 36.5 % (39.6-49.0); Hemoglobin 12.4 g/dL (13.6-17.9); Lymphocytes % 29.1 % (15.3-44.8); MCH 27.2 pg (27.0-35.0); MCHC 33.9 g/dL (32.0-36.0); MCV 80.2 fL (80-100); MPV 7.4 fL (7.6-11.3); Monocytes % 9.5 % (3.3-12.3); Neutrophils % 56.6 % (41.7-73.7); Platelets 342 thou/uL (152-406); RBC Red Blood Cell Count 4.55 M/uL (4.33-5.43); Red Cell Distribution Width 14.4 % (12.1-15.2)
[2024-06-26 12:10] LABS: PT Prothrombin Time 11.9 SECONDS (10-13.0); PTT, Activated Partial Thromb 35.1 SECONDS (27.2-37.4); Protime INR 1.05
[2024-06-26 12:15] LABS: Albumin 2.9 g/dL (3.4-5.0); Albumin/Globulin Ratio 0.6 (1.1-1.8); Anion Gap 8.4 mEq/L (5.0-15.0); Bilirubin Total 0.3 mg/dL (0.2-1.0); Globulin 4.9 g/dL (2.3-3.5); Potassium 3.4 mEq/L (3.5-5.1); Protein, Total 7.8 g/dL (6.4-8.2)
--- NOTE | 2024-06-26 13:05 | RAD REPORT ---
EXAMINATION: US LEFT LOWER EXTREMITY VENOUS DOPPLER CLINICAL INDICATION: SWELLING TECHNIQUE: Complete bilateral duplex sonography of the LEFT lower extremity veins was performed. The examination included compression for vein patency, color Doppler imaging and flow augmentation in response to distal compression of the distal external iliac, common femoral, femoral, popliteal, tibi al, and great and small saphenous veins. COMPARISON: No prior exam. FINDINGS: Duplex sonography testing of the veins of the LEFT lower extremity was performed. Color flow imaging shows all veins to be compressible with [id number] color filling. Pulsatile and phasic flow is present within all lower extremity deep and superficial veins examined. IMPRESSION: There is no deep vein or superficial vein thrombosis.
--- NOTE | 2024-06-26 13:10 | ER ---
Nurse's Notes [facility] Name: Tee Ohcoa Age: 38 yrs Sex: Male : 1985 Arrival Date: 06/26/2024 Time: 11:09 Bed 19 Private MD: Diagnosis: Cellulitis of left lower limb Presentation: 06/26 11:21 Chief complaint: On ABX day 5 for LLE cellulitis, instructed by PCP to get checked hb today. Coronavirus screen: At this time, the client does not indicate any symptoms associated with coronavirus-19. Ebola Screen: No symptoms or risks identified at this time. Initial Sepsis Screen: Does the patient meet any 2 criteria? No. Patient's initial sepsis screen is negative. Does the patient have a suspected source of infection? No. Patient's initial sepsis screen is negative. Risk Assessment: Do you want to hurt yourself or someone else? Patient reports no desire to harm self or others. Onset of symptoms was June 26, 2024. 11:21 Method Of Arrival: Ambulatory hb 11:21 Acuity: YVROSE 3 hb Triage Assessment: :30 General: Appears in no apparent distress. uncomfortable, obese, Behavior is calm, bp cooperative, appropriate for age. Pain: Complains of pain in left leg. EENT: No deficits noted. Neuro: No deficits noted. Cardiovascular: No deficits noted. Respiratory: No deficits noted. GI: No signs and/or symptoms were reported involving the gastrointestinal system. : No signs and/or symptoms were reported regarding the genitourinary system. Derm: No deficits noted. Musculoskeletal: No deficits noted. Historical: - Allergies: 11: No Known Allergies; hb - PMHx: 11:26 Anxiety; drug abuse; Hypertension; hb - Immunization history:: Adult Immunizations up to date. - Infectious Disease History:: Denies. - Social history:: Smoking status: Patient reports the use of cigarette tobacco products. Screenin:30 [facility] ED Fall Risk Assessment (Adult) History of falling in the last 3 months, bp including since admission No falls in past 3 months (0 pts) Confusion or Disorientation No (0 pts) Intoxicated or Sedated No (0 pts) Impaired Gait No (0 pts) Mobility Assist Device Used No (0 pt) Altered Elimination No (0 pt) Score/Fall Risk Level 0 - 2 = Low Risk Oriented to surroundings. Abuse screen: Denies threats or abuse. Denies injuries from another. Nutritional screening: No deficits noted. Tuberculosis screening: No symptoms or risk factors identified. Assessment: 11:30 General: Appears in no apparent distress. Behavior is calm, cooperative, appropriate bp for age. Vital Signs: 11:21 BP 158 / 86; Pulse 89; Resp 16; Temp 98.4(O); Pulse Ox 100% on R/A; Pain 0/10; hb 11:21 Pain Scale: Adult hb ED Course: 11:13 Patient arrived in ED. al6 11:13 Charito Saleh FNP-C [facility]. kb 11:13 Michael Barkley MD is Attending Physician. kb 11:17 Willy Prakash, RN is Primary Nurse. bp 11:26 Triage completed. hb 11:26 Arm band placed on. hb 11:30 Patient has correct armband on for positive identification. bp 11:30 No provider procedures requiring assistance completed. IV discontinued, intact, bp bleeding controlled, No redness/swelling at site. Pressure dressing applied. 11:40 Inserted saline lock: 20 gauge in left forearm, using aseptic technique. Blood bp collected. Flushed with 10 mL NS. 11:40 Initial lab(s) drawn, by me, sent to lab. First set of blood cultures drawn by me, bp Second set of blood cultures drawn by me. 12:55 US Extremity Venous Unilateral Ltd In Process Unspecified. EDMS Administered Medications: No medications were administered Medication: 11:30 VIS not applicable for this client. bp Outcome: 11:30 Discharged to home ambulatory, bp 11:30 Condition: stable 11:30 Discharge instructions given to patient, Instructed on discharge instructions, follow up and referral plans. medication usage, Demonstrated understanding of instructions, follow-up care, medications, Prescriptions given X 1, 13:10 Discharge ordered by . kb 13:23 Patient left the ED. bp Signatures: Dispatcher [employer] EDMS Charito Saleh FNP-C FNP-Ckb Baxter, Heather, RN RN Willy Fajardo, RN RN Lilliam Khan al6
--- NOTE | 2024-06-26 13:10 | EDPHYS ---
Physician Documentation [facility] Name: Tee Ochoa Age: 38 yrs Sex: Male : 1985 Arrival Date: 06/26/2024 Time: 11:09 Bed 19 Private MD: ED Physician Michael Barkley HPI: 06/26 11:51 This 38 yrs old Male presents to ER via Ambulatory with complaints of leg kb problem. 11:51 Pt is a 38 year old male who presents for erythema, swelling to left lower extremity. kb States he is on day 5 of antibiotics for a sinus infection, the redness showed up after he started the antibiotics. States his PCP told him to come to the ER for reevaluation to make sure it was improving. . Historical: - Allergies: 11:26 No Known Allergies; hb - PMHx: 11:26 Anxiety; drug abuse; Hypertension; hb - Immunization history:: Adult Immunizations up to date. - Infectious Disease History:: Denies. - Social history:: Smoking status: Patient reports the use of cigarette tobacco products. ROS: 11:49 Constitutional: As per HPI kb Exam: 11:49 Constitutional: This is a well developed, well nourished patient who is awake, alert, kb and in no acute distress. Head/Face: Normocephalic, atraumatic. ENT: Moist Mucous membranes Cardiovascular: Regular rate Respiratory: Respirations even and unlabored. No increased work of breathing. Talking in full sentences MS/ Extremity: Pulses equal, no cyanosis. Neurovascular intact. Full, normal range of motion. Neuro: Awake and alert, GCS 15, oriented to person, place, time, and situation. 11:49 Skin: cellulitis, that is moderate, on the left lower extremity, Vital Signs: 11:21 BP 158 / 86; Pulse 89; Resp 16; Temp 98.4(O); Pulse Ox 100% on R/A; Pain 0/10; hb 11:21 Pain Scale: Adult hb MDM: 11:14 Medical Screening Exam initiated kb 12:59 Data reviewed: vital signs, nurses notes. kb 13:08 Differential diagnosis: cellulitis, dvt. Consideration of Admission/Observation kb Escalation of care including admission/observation considered. admission considered but symptoms and labs improving. External Records Reviewed: Outside ED record: Labs from [place] reviewed. WBC [id number] 5 days ago. Counseling: I had a detailed discussion with the patient and/or guardian regarding the historical points, exam findings, and any diagnostic results supporting the discharge/admit diagnosis, lab results, radiology results, the need for outpatient follow up, a family practitioner, to return to the emergency department if symptoms worsen or persist or if there are any questions or concerns that arise at home. 06/26 11:23 Order name: Blood Culture Adult (2) kb 06/26 11:23 Order name: CBC with Diff; Complete Time: 12:17 kb 06/26 11:23 Order name: CMP; Complete Time: 12:17 kb 06/26 11:23 Order name: Lactate w/ 2H reflex if indic.; Complete Time: 12:17 kb 06/26 11:23 Order name: Protime (+inr); Complete Time: 12:17 kb 06/26 11:23 Order name: Ptt, Activated; Complete Time: 12:17 kb 06/26 12:25 Order name: US Extremity Venous Unilateral Ltd; Complete Time: 13:06 ph 06/26 11:23 Order name: IV Saline Lock - Large Bore; Complete Time: 11:39 kb 06/26 11:23 Order name: Labs collected and sent; Complete Time: 11:39 kb 06/26 11:23 Order name: O2 Per Protocol; Complete Time: 11:25 kb 06/26 11:23 Order name: O2 Sat Monitoring; Complete Time: 11:25 kb 06/26 11:23 Order name: Vital Signs; Complete Time: 11:25 kb Administered Medications: No medications were administered Disposition: 16:13 Co-signature as Attending Physician, Michael Barkley MD I reviewed the patient's care rt provided by the Advanced Practice Provider and agree with the diagnosis and treatment plan. Disposition Summary: 06/26/24 13:10 Discharge Ordered Notes: Location: Home kb Condition: Stable kb Diagnosis - Cellulitis of left lower limb kb Followup: kb - With: Emergency Department - When: As needed - Reason: Worsening of condition Followup: kb - With: Private Physician - When: 2 - 3 days - Reason: Recheck today's complaints, Continuance of care, Re-evaluation by your physician Discharge Instructions: - Discharge Summary Sheet kb - Cellulitis, Adult, [id number] kb Forms: - Medication Reconciliation Form kb - Antibiotic Education kb - Prescription Opioid Use kb - Patient Portal Instructions kb - Leadership Thank You Letter kb Prescriptions: - Doxycycline Hyclate 100 mg Oral Tablet - take 1 tablet ORAL route every 12 hours; 20 tablet; Refills: 0, Product kb Selection Permitted Signatures: Dispatcher [employer] EDMS Charito Saleh, [employer]C [employer]-Hilaria Busby, RN RN Michael De MD MD rt Corrections: (The following items were deleted from the chart) 12:56 12:08 Extremity Venous Uni Ltd+[email or web address] ordered. EDMS EDMS
[2024-06-26 13:27] VITALS: BP 158/86; TEMP 98.4; O2SAT 100
== END 2024-06-26 13:23 | disposition home or self-care (01) ==
LOC: ER 11:09
DX: L03.116 Cellulitis of left lower limb (principal)
CPT/HCPCS: 36415; 80053; 83605; 85025; 85610; 85730; 87040; 93971; 99284

== ENCOUNTER 2025-01-18 10:38 | Day surgery (SDC) | payer BC ==
--- NOTE | 2025-01-13 11:58 | RAD REPORT ---
EXAMINATION: TWO VIEW CHEST XR CLINICAL INDICATION: Male, 39 years old. Hypertension. Pre op TECHNIQUE: 2 view radiographs of the chest were performed. COMPARISON: 11/30/2023 FINDINGS: The lungs are well inflated and clear. No pneumothorax or sizable effusion. The heart is normal in si ze. Mediastinal contours are unremarkable. IMPRESSION: No acute or significant abnormalities.
[2025-01-18] MEDS ORDERED: NA CHLORIDE 0.9% 500 ML ONE (10:40)
[2025-01-18] MEDS: ASPIRIN 81 MG CHEWABLE TABLET ONE (10:49)
[2025-01-18 11:02] LABS: Absolute Lymphocytes (CBC) 1.7 K/uL (0.7-4.9); Hematocrit 38.0 % (39.6-49.0); Hemoglobin 12.8 g/dL (13.6-17.9); MCH 26.9 pg (27.0-35.0); MCHC 33.7 g/dL (32.0-36.0); MCV 79.9 fL (80-100); MPV 7.0 fL (7.6-11.3); Nucleated RBC Absolute Count 0.0 (0-0); Nucleated Red Blood Cells % 0.0 % (0-0); RBC Red Blood Cell Count 4.76 M/uL (4.33-5.43); White Blood Count 6.10 thou/uL (4.3-10.9)
[2025-01-18 11:11] LABS: PT Prothrombin Time 11.8 SECONDS (10-13.0); PTT, Activated Partial Thromb 31.9 SECONDS (27.2-37.4); Protime INR 1.05
[2025-01-18 11:19] LABS: Anion Gap 9.6 mEq/L (5.0-15.0); BUN Blood Urea Nitrogen 16.0 mg/dL (7-18); Glucose Level 99.0 mg/dL (74-106)
[2025-01-18 11:27] LABS: Potassium 2.6 mEq/L (3.5-5.1)
[2025-01-18] MEDS ORDERED: HEPA 1000U/500MLS 2,000 UNIT/1,000 ML BAG IV ONE (11:39)
[2025-01-18] MEDS ORDERED: HEPARIN 10,000 UNIT/10 ML VIAL IV ONE (11:40)
[2025-01-18] MEDS ORDERED: LIDOCAINE 1% 20 ML MDV ONE (11:40)
[2025-01-18] MEDS ORDERED: HEPARIN 5000 UNIT/ML 1 ML VIAL ONE (11:40)
[2025-01-18] MEDS ORDERED: VERAPAMIL HCL 10 MG/4 ML VIAL IV ONE (11:41)
[2025-01-18] MEDS: KCL 20 MEQ/100 mL IVPB 100 ML IV ONE (11:45)
[2025-01-18] MEDS ORDERED: FENTANYL CITR 100 MCG/2 ML ONE (11:49)
[2025-01-18] MEDS ORDERED: MIDAZOLAM HCL 2 MG/2 ML INJ ONE (11:49)
[2025-01-18] MEDS ORDERED: POTASSIUM CL SA 10 MEQ TAB PO ONE (13:15)
[2025-01-18 15:09] VITALS: BP 128/62; O2SAT 97
[2025-01-18 15:54] LABS: Magnesium 2.4 mg/dL (1.6-2.4); Potassium 3.6 mEq/L (3.5-5.1)
--- NOTE | 2025-01-18 20:49 | OP ---
Date of Procedure: 01/18/2025 Surgeon: Zach Gonzales Procedures Performed: 1. Selective coronary angiogram. 2. Left heart catheterization. Indication: Chest pain with abnormal stress test. Access: Right radial artery 6-Moldovan closed with TR band. Complications: None. Bleeding: Less than 50 mL. Total Sedation Time: None. We did not use sedation due to low blood pressure. Description Of Procedure: After risks, benefits, and alternatives were explained, the patient agreed to the procedure and signed informed consent. The patient was brought into cardiac catheterization laboratory, prepped and draped in the usual sterile fashion. Then, I accessed right radial artery us ing pediatric micropuncture kit and ultrasound guidance, and placed a 6-Moldovan slender sheath, took 5 -Moldovan Hershey 4.0 catheter over a J-wire into the aortic root across the aortic valve, measured the L VEDP. Pullback did not record any gradient, then engaged the left main, took standard views, and the n in the RCA, took standard views, and then I removed the catheter and the sheath, placed TR band wit h good hemostasis. Findings: 1. Left main; very large and normal. 2. LAD; large vessel with ostial 20% stenosis. Rest of it is normal. Normal diagonal branches. 3. Left circumflex; moderate to large size vessel. It is normal. OM branch 1 has about 30% stenosis . 4. RCA; it is moderate in size vessel and dominant and it is normal. The PDA has luminal irregularit ies. 5. LVEDP is elevated at 19 mmHg. Conclusion: 1. Very mild coronary artery disease. 2. Elevated LVEDP. Recommendation: Medical management. /RHONDA Voice ID: [id number] Report ID: [id number]
== END 2025-01-18 16:00 | disposition home or self-care (01) ==
LOC: CCL 10:38
PROVIDERS: ATTEND Internal Medicine
DX: I25.10 Atherosclerotic heart disease of native coronary artery without angina pectoris (principal); I51.7 Cardiomegaly; I10 Essential (primary) hypertension; F17.210 Nicotine dependence, cigarettes, uncomplicated; Z79.899 Other long term (current) drug therapy
CPT/HCPCS: 85025; 80048; 36415; 83735; 84132; 85610; 85730; 71046; 93458; 76937; C1893; Q9966; J1644 ×2; J3480; J2003; J2250; J3010; J7040; 99152; 99153